=== PATIENT | female | born 1930 | race Caucasian/White ===

== ENCOUNTER 2017-01-10 08:16 | Outpatient (CLI) | payer OTHER, MEDICAID | END 2017-01-10 18:21 | disposition home or self-care (01) | LOC: SCT 08:16 | PROVIDERS: ATTEND Specialist | DX: R22.1 Localized swelling, mass and lump, neck (principal) | CPT/HCPCS: 70490 ==

== ENCOUNTER 2017-06-09 01:55 | Emergency (ER) | payer OTHER, MEDICAID ==
[~2017-06-09] VITALS: Ht 152.4 cm; Wt 55.3 kg
[2017-06-09 01:55] VITALS: BP_SYST 126
--- NOTE | 2017-06-09 01:55 | NUR ---
Note nathan in ED - 06/09/17 at 0205 by [email or web address] Patient to bed 3 to [facility] for evaluation. Side rails up. Report given to RADHA AGUILA.
--- NOTE | 2017-06-09 01:55 | NUR ---
Patient to ER bed 3 to gown for evaluation. Side rails up. Report given to RADHA AGUILA.
--- NOTE | 2017-06-09 01:55 | NUR ---
Patient to ER bed 3 to gown for evaluation. Side rails up. Report given to RADHA AGUILA.
--- NOTE | 2017-06-09 02:00 | NUR ---
Pt was brought in by BLS. BLS stated that the patient told the staff that she was having chest pain. When ALS arrived, the patient had no complaints and vitals were stable. Staff wanted her to be evaluated anyways. Upon assessment, pt is in no distress. Pt states she was having SOB. Pt stated she doesn't know for how long. Lung sounds clear bilaterally. Pt is a trach patient. AAOx4. Will continue to monitor. No other injuries or complaints mentioned/noted. No distress noted.
--- NOTE | 2017-06-09 02:05 | NUR ---
JUAN Salinas at bedside examining patient.
[2017-06-09 03:06] LABS: BASOPHILS % (AUTO) 0.3 % (0.0-2.0); EOSINOPHILS # (AUTO) 0.3 K/uL (0.0-0.4); EOSINOPHILS % (AUTO) 3.3 % (0.0-4.0); HEMATOCRIT 29.7 % (36-48); HEMOGLOBIN 9.9 g/dL (12.0-16.0); LYMPHOCYTES # (AUTO) 1.8 K/uL (1.0-5.5); LYMPHOCYTES % (AUTO) 19.7 % (20.5-51.5); MEAN CORPUSCULAR HEMOGLOBIN 32 pg (27-31); MEAN CORPUSCULAR HGB CONC 33 % (32-36); MEAN CORPUSCULAR VOLUME 96 fL (79.0-98.0); MONOCYTES # (AUTO) 0.6 K/uL (0.0-1.0); MONOCYTES % (AUTO) 6.6 % (1.7-9.3); NEUTROPHILS # (AUTO) 6.4 K/uL (1.8-7.7); NEUTROPHILS % (AUTO) 70.1 % (40.0-70.0); PLATELET COUNT (AUTO) 248 K/uL (130-430); RED BLOOD CELL COUNT(AUTO) 3.11 MIL/uL (4.2-6.2); RED CELL DISTRIBUTION WIDTH 12.4 % (9.0-15.0); WHITE BLOOD COUNT (AUTO) 9.1 K/uL (4.8-10.8)
[2017-06-09 03:10] LABS: ANION GAP 10 (5-15); CALCIUM 8.6 mg/dL (8.4-11.0); CHLORIDE 102 mmol/L (98-107); CREATININE 0.76 mg/dL (0.55-1.30); GLUCOSE 247 mg/dL (70-99); POTASSIUM 3.9 mmol/L (3.5-5.1); SODIUM SERUM 137 mmol/L (136-145); UREA NITROGEN, BLOOD 18 mg/dL (8-21)
[2017-06-09 03:16] LABS: ALANINE AMINOTRANSFERASE 25 U/L (12-78); ALBUMIN 3.4 g/dL (3.4-4.8); ASPARTATE AMINOTRANSFERASE 17 U/L (10-37); TOTAL BILIRUBIN 0.3 mg/dL (0.0-1.0)
[2017-06-09 04:15] VITALS: BP_SYST 118
--- NOTE | 2017-06-09 04:19 | NUR ---
Patient given written and verbal discharge instructions and verbalizes understanding. Pt unable to sign due to weakness. ER MD discussed with patient the results and treatment provided. Patient in stable condition. ID arm band removed. Patient educated on pain management and to follow up with PMD. Pain Scale 0/10. Opportunity for questions provided and answered. Pt transferred to [facility] to take home. Report called to Roger GARCIA at [facility].
== END 2017-06-09 04:19 ==
LOC: SED 01:55
DX: R06.02 Shortness of breath (principal); Z93.0 Tracheostomy status
CPT/HCPCS: 36415; 71010; 80053; 83880; 85025; 99285